=== PATIENT | female | born 1945 | race Two or more races ===

== ENCOUNTER 2023-06-24 20:17 | Inpatient (IN) | payer OTHER ==
[~2023-06-24] VITALS: Ht 157.5 cm; Wt 61.7 kg
[2023-06-24] MEDS ORDERED: PANTOPRAZOLE 40 MG VIAL ONE (20:47)
[2023-06-24] MEDS ORDERED: ONDANSETRON HCL/PF 4 MG/2 ML VIAL ONE (20:47)
[2023-06-24] MEDS: LACTULOSE 10 G/15 ML UDC (PYXIS) PO ONE (21:00)
[2023-06-24] MEDS ORDERED: IV NS 0.9% 1,000 ML BAG IV ONE (21:00)
[2023-06-24] MEDS ORDERED: ONDANSETRON HCL/PF 4 MG/2 ML VIAL IVP ONE (21:00)
[2023-06-24] MEDS ORDERED: PANTOPRAZOLE 40 MG VIAL IV ONE (21:00)
[2023-06-24] MEDS ORDERED: MORPHINE SULFATE INJ 2 MG/ML DISP.SYRIN IV ONE ×2 (21:00→22:00)
[2023-06-24] MEDS ORDERED: LACTULOSE 10 G/15 ML UDC (PYXIS) ONE (21:03)
[2023-06-24] MEDS ORDERED: MORPHINE SULFATE INJ 2 MG/ML DISP.SYRIN ONE ×2 (21:04→21:59)
[2023-06-24 21:11] LABS: BASOPHILS # (AUTO) 0.1 K/uL (0.0-0.2); BASOPHILS % (AUTO) 0.8 % (0.0-2.0); EOSINOPHILS # (AUTO) 0.1 K/uL (0.0-0.7); EOSINOPHILS % (AUTO) 1.1 % (0.0-6.0); HEMATOCRIT 39 % (33-45); HEMOGLOBIN 13.1 g/dL (11.5-14.8); LYMPHOCYTES # (AUTO) 2.6 K/uL (0.8-4.8); LYMPHOCYTES % (AUTO) 21.2 % (20.0-44.0); MEAN CORPUSCULAR HEMOGLOBIN 31 PG (26.0-33.0); MEAN CORPUSCULAR HGB CONC 34 g/dl (31.0-36.0); MEAN CORPUSCULAR VOLUME 91 fL (82-100); MONOCYTES # (AUTO) 0.9 K/uL (0.1-1.30); NEUTROPHILS # (AUTO) 8.6 K/uL (1.8-8.9); NEUTROPHILS % (AUTO) 69.9 % (43.0-81.0); PLATELET COUNT (AUTO) 403 K/uL (150-450); RED BLOOD CELL COUNT(AUTO) 4.26 MIL/uL (4.0-5.2); RED CELL DISTRIBUTION WIDTH 13.4 % (11.5-15.0); WHITE BLOOD COUNT (AUTO) 12.3 K/uL (4.3-11.0)
[2023-06-24 21:22] LABS: CALCIUM, SERUM 10.3 mg/dL (8.5-10.1); CREATININE 0.9 mg/dL (0.6-1.3); POTASSIUM 3.9 mmol/L (3.5-5.1)
[2023-06-24 21:22] LABS: APPEARANCE,URINE CLEAR (CLEAR); BILIRUBIN,URINE NEGATIVE (NEGATIVE); BLOOD, URINE NEGATIVE Ery/uL (NEGATIVE); COLOR,URINE YELLOW (YELLOW); KETONES,URINE NEGATIVE (NEGATIVE); LEUKOCYTE ESTERASE ,URINE NEGATIVE (NEGATIVE); NITRITE, URINE NEGATIVE (NEGATIVE); PH,URINE 6.5 (5.0-8.0); PROTEIN,URINE NEGATIVE (NEGATIVE); UGLUCOSE NEGATIVE (NEGATIVE); UROBILINOGEN,URINE 0.2 EU/dL (0.2)
[2023-06-24 21:28] LABS: ALBUMIN 3.2 g/dL (3.4-5.0); BILIRUBIN,DIRECT 0.1 mg/dL (0.0-0.2); BILIRUBIN,TOTAL 0.3 mg/dL (0.2-1.0); TOTAL PROTEIN, SERUM 7.6 g/dL (6.4-8.2)
[2023-06-24] MEDS ORDERED: LOVA40TA2 PO (23:12)
[2023-06-24] MEDS ORDERED: BUPR150T10 PO (23:12)
[2023-06-24] MEDS ORDERED: CARV6.25 PO (23:12)
[2023-06-24] MEDS ORDERED: CLOP75TA15 PO (23:12)
[2023-06-24] MEDS ORDERED: AMLO1CAP2 PO (23:12)
[2023-06-25] MEDS ORDERED: MINERAL OIL 133 ML (PYXIS) 1 EA ENEMA RC ONE (00:07)
[2023-06-25] MEDS ORDERED: MORPHINE SULFATE INJ 2 MG/ML DISP.SYRIN ONE (00:11)
[2023-06-25] MEDS: MINERAL OIL 133 ML (PYXIS) 1 EA ENEMA RC ONE ×2 (00:27→00:51)
[2023-06-25] MEDS ORDERED: MORPHINE SULFATE INJ 2 MG/ML DISP.SYRIN IV ONE (00:30)
[2023-06-25] MEDS ORDERED: ONDANSETRON HCL/PF 4 MG/2 ML VIAL ONE (00:40)
[2023-06-25] MEDS ORDERED: ONDANSETRON HCL/PF 4 MG/2 ML VIAL IVP ONE (01:00)
[2023-06-25] MEDS ORDERED: ACETAMINOPHEN 650 MG/20.3 ML UDC PO PRN (04:30)
[2023-06-25] MEDS ORDERED: IV D5/0.45 NACL 1,000 ML IV PRN (04:30)
[2023-06-25] MEDS: MORPHINE SULFATE INJ 2 MG/ML DISP.SYRIN IV PRN ×3 (04:47→11:26)
[2023-06-25] MEDS: ONDANSETRON HCL/PF 4 MG/2 ML VIAL IV PRN ×3 (05:20→17:26)
[2023-06-25 06:16] LABS: CALCIUM, SERUM 9.4 mg/dL (8.5-10.1); CARBON DIOXIDE 28 mmol/L (21-32); CHLORIDE 95 mmol/L (98-107); CREATININE 0.8 mg/dL (0.6-1.3); GLUCOSE 144 mg/dL (74-106); POTASSIUM 3.5 mmol/L (3.5-5.1); SODIUM SERUM 133 mmol/L (136-145); UREA NITROGEN, BLOOD 15 mg/dL (7-18)
[2023-06-25 06:17] LABS: BASOPHILS % (AUTO) 0.1 % (0.0-2.0); EOSINOPHILS % (AUTO) 0.1 % (0.0-6.0); HEMATOCRIT 41 % (33-45); HEMOGLOBIN 13.8 g/dL (11.5-14.8); LYMPHOCYTES # (AUTO) 1.7 K/uL (0.8-4.8); LYMPHOCYTES % (AUTO) 9.4 % (20.0-44.0); MEAN CORPUSCULAR HEMOGLOBIN 31 PG (26.0-33.0); MEAN CORPUSCULAR HGB CONC 33 g/dl (31.0-36.0); MEAN CORPUSCULAR VOLUME 92 fL (82-100); MONOCYTES # (AUTO) 1.2 K/uL (0.1-1.30); MONOCYTES % (AUTO) 6.9 % (2.0-12.0); NEUTROPHILS # (AUTO) 14.8 K/uL (1.8-8.9); NEUTROPHILS % (AUTO) 83.5 % (43.0-81.0); PLATELET COUNT (AUTO) 394 K/uL (150-450); RED BLOOD CELL COUNT(AUTO) 4.48 MIL/uL (4.0-5.2); RED CELL DISTRIBUTION WIDTH 13.2 % (11.5-15.0); WHITE BLOOD COUNT (AUTO) 17.7 K/uL (4.3-11.0)
[2023-06-25 07:30] VITALS: BP 169/73; TEMP 98.4; O2SAT 90
[2023-06-25] MEDS ORDERED: LINA290C PO (08:23)
[2023-06-25] MEDS ORDERED: ALBU8.5H8 IH (08:23)
[2023-06-25] MEDS ORDERED: DEXL60CA3 PO (08:23)
[2023-06-25] MEDS ORDERED: FLAX10003 PO (08:23)
[2023-06-25] MEDS ORDERED: LORA-259 PO (08:23)
[2023-06-25] MEDS ORDERED: ZINC50TA39 PO (08:23)
[2023-06-25] MEDS ORDERED: ALEN70TA80 PO (08:23)
[2023-06-25] MEDS ORDERED: CYAN500T64 PO (08:23)
[2023-06-25] MEDS ORDERED: ASPI-1169 PO (08:23)
[2023-06-25] MEDS ORDERED: CALC-34 PO (08:23)
[2023-06-25] MEDS ORDERED: MULT-754 PO (08:23)
[2023-06-25] MEDS: ENOXAPARIN SODIUM 40 MG/0.4 ML DISP.SYRIN SQ SCH (08:28)
[2023-06-25] MEDS ORDERED: CLOPIDOGREL BISULFATE 75 MG TABLET PO SCH ×3 (09:00→22:00)
[2023-06-25] MEDS: buPROPion SR 150 MG TABLET.ER PO SCH ×2 (09:00→17:02)
[2023-06-25] MEDS ORDERED: Medication Not On Formulary EA (Flaxseed Oil 1,000 MG) PO SCH (09:00)
[2023-06-25] MEDS ORDERED: NA PHOS,M-B/NA PHOS,DI-BA 1 EA ENEMA RC ONE (09:00)
[2023-06-25] MEDS ORDERED: Medication Not On Formulary EA (Linaclotide (Linzess) 290 MCG) PO SCH (09:00)
[2023-06-25] MEDS ORDERED: ASPIRIN 81 MG TAB.CHEW PO SCH ×3 (09:00→22:00)
[2023-06-25] MEDS: CYANOCOBALAMIN 500 MCG TABLET PO SCH (09:00)
[2023-06-25] MEDS: AMLODIPINE BESYLATE 5 MG TABLET PO SCH ×3 (09:53→17:03)
[2023-06-25] MEDS: CARVEDILOL 6.25 MG TABLET PO SCH ×3 (09:54→17:03)
[2023-06-25] MEDS ORDERED: ALBUTEROL FS 2.5 MG/0.5 ML VIAL.NEB NEB PRN (10:00)
[2023-06-25] MEDS: Potassium Chloride 10 MEQ in IV D5/ 0.9% NACL 1,000 ML IV SCH ×2 (10:03→20:43)
[2023-06-25] MEDS: MEROPENEM 1 G in IV NS 0.9% 100 ML IV SCH ×2 (11:25→17:05)
[2023-06-25 16:00] VITALS: BP 137/58; TEMP 98.4; O2SAT 86
[2023-06-25] MEDS: MORPHINE SULFATE INJ 4 MG/ML DISP.SYRIN IV PRN ×2 (17:15→22:42)
[2023-06-25 20:00] VITALS: BP 139/61; TEMP 98.1; O2SAT 94
[2023-06-25 20:56] VITALS: BP 122/55; TEMP 98.1; O2SAT 100
[2023-06-25] MEDS: LORAZEPAM 1 MG TABLET PO SCH (21:09)
[2023-06-26] MEDS: MEROPENEM 1 G in IV NS 0.9% 100 ML IV SCH ×3 (02:04→17:18)
[2023-06-26 05:50] LABS: BASOPHILS % (AUTO) 0.3 % (0.0-2.0); EOSINOPHILS # (AUTO) 0.1 K/uL (0.0-0.7); EOSINOPHILS % (AUTO) 0.3 % (0.0-6.0); HEMATOCRIT 36 % (33-45); HEMOGLOBIN 11.9 g/dL (11.5-14.8); LYMPHOCYTES # (AUTO) 1.9 K/uL (0.8-4.8); LYMPHOCYTES % (AUTO) 11.7 % (20.0-44.0); MEAN CORPUSCULAR HEMOGLOBIN 31 PG (26.0-33.0); MEAN CORPUSCULAR HGB CONC 33 g/dl (31.0-36.0); MEAN CORPUSCULAR VOLUME 92 fL (82-100); MONOCYTES # (AUTO) 1.8 K/uL (0.1-1.30); MONOCYTES % (AUTO) 11.2 % (2.0-12.0); NEUTROPHILS # (AUTO) 12.4 K/uL (1.8-8.9); NEUTROPHILS % (AUTO) 76.5 % (43.0-81.0); PLATELET COUNT (AUTO) 356 K/uL (150-450); RED BLOOD CELL COUNT(AUTO) 3.88 MIL/uL (4.0-5.2); RED CELL DISTRIBUTION WIDTH 13.5 % (11.5-15.0); WHITE BLOOD COUNT (AUTO) 16.2 K/uL (4.3-11.0)
[2023-06-26] MEDS: MORPHINE SULFATE INJ 4 MG/ML DISP.SYRIN IV PRN ×3 (05:55→23:13)
[2023-06-26] MEDS: Potassium Chloride 10 MEQ in IV D5/ 0.9% NACL 1,000 ML IV SCH ×2 (05:57→17:02)
[2023-06-26 06:22] LABS: CARBON DIOXIDE 30 mmol/L (21-32); CHLORIDE 100 mmol/L (98-107); CREATININE 0.7 mg/dL (0.6-1.3); GLUCOSE 155 mg/dL (74-106); MAGNESIUM 3.1 mg/dL (1.8-2.4); POTASSIUM 3.6 mmol/L (3.5-5.1); SODIUM SERUM 135 mmol/L (136-145); UREA NITROGEN, BLOOD 14 mg/dL (7-18)
[2023-06-26 08:05] VITALS: BP 128/58; TEMP 98.4; O2SAT 93
[2023-06-26] MEDS ORDERED: CLOPIDOGREL BISULFATE 75 MG TABLET PO SCH ×2 (09:00→22:00)
[2023-06-26] MEDS ORDERED: ASPIRIN 81 MG TAB.CHEW PO SCH ×2 (09:00→22:00)
[2023-06-26] MEDS ORDERED: NA PHOS,M-B/NA PHOS,DI-BA 1 EA ENEMA RC ONE (09:00)
[2023-06-26] MEDS ORDERED: ATORVASTATIN 40 MG TABLET PO SCH ×2 (09:00→20:00)
[2023-06-26] MEDS: ENOXAPARIN SODIUM 40 MG/0.4 ML DISP.SYRIN SQ SCH (09:00)
[2023-06-26] MEDS: LACTULOSE 10 G/15 ML UDC (PYXIS) PO SCH ×2 (09:03→17:00)
[2023-06-26] MEDS: ZINC SULFATE 220 MG CAPSULE PO SCH (09:03)
[2023-06-26] MEDS: PANTOPRAZOLE 40 MG/PACK PACK PO SCH (09:03)
[2023-06-26] MEDS: buPROPion SR 150 MG TABLET.ER PO SCH ×2 (09:03→17:17)
[2023-06-26] MEDS: MULTIVITAMINS,THERAGRAN 1 UDTAB TABLET PO SCH (09:03)
[2023-06-26] MEDS: AMLODIPINE BESYLATE 5 MG TABLET PO SCH ×2 (09:04→17:00)
[2023-06-26] MEDS: CYANOCOBALAMIN 500 MCG TABLET PO SCH (09:04)
[2023-06-26] MEDS: CARVEDILOL 3.125 MG TABLET PO SCH ×2 (09:05→17:00)
[2023-06-26 16:10] VITALS: BP 139/59; TEMP 99; O2SAT 93
[2023-06-26 20:00] VITALS: BP 152/66; TEMP 98.2; O2SAT 93
[2023-06-26] MEDS ORDERED: POLYETHYLENE GLYCOL 3350 17 GM POWD.PACK PO SCH (22:00)
[2023-06-26] MEDS: LORAZEPAM 1 MG TABLET PO SCH (22:04)
[2023-06-27] MEDS: MEROPENEM 1 G in IV NS 0.9% 100 ML IV SCH ×2 (02:05→10:38)
[2023-06-27] MEDS: Potassium Chloride 10 MEQ in IV D5/ 0.9% NACL 1,000 ML IV SCH (02:25)
[2023-06-27 05:48] LABS: BASOPHILS # (AUTO) 0.1 K/uL (0.0-0.2); BASOPHILS % (AUTO) 0.5 % (0.0-2.0); EOSINOPHILS # (AUTO) 0.2 K/uL (0.0-0.7); EOSINOPHILS % (AUTO) 1.2 % (0.0-6.0); HEMATOCRIT 38 % (33-45); HEMOGLOBIN 12.2 g/dL (11.5-14.8); LYMPHOCYTES # (AUTO) 2.6 K/uL (0.8-4.8); LYMPHOCYTES % (AUTO) 20.7 % (20.0-44.0); MEAN CORPUSCULAR HEMOGLOBIN 31 PG (26.0-33.0); MEAN CORPUSCULAR HGB CONC 33 g/dl (31.0-36.0); MEAN CORPUSCULAR VOLUME 94 fL (82-100); MONOCYTES # (AUTO) 1.2 K/uL (0.1-1.30); MONOCYTES % (AUTO) 9.1 % (2.0-12.0); NEUTROPHILS # (AUTO) 8.7 K/uL (1.8-8.9); NEUTROPHILS % (AUTO) 68.5 % (43.0-81.0); PLATELET COUNT (AUTO) 303 K/uL (150-450); RED CELL DISTRIBUTION WIDTH 13.4 % (11.5-15.0); WHITE BLOOD COUNT (AUTO) 12.7 K/uL (4.3-11.0)
[2023-06-27 06:20] LABS: CALCIUM, SERUM 8.1 mg/dL (8.5-10.1); CARBON DIOXIDE 29 mmol/L (21-32); CHLORIDE 104 mmol/L (98-107); CREATININE 0.7 mg/dL (0.6-1.3); GLUCOSE 128 mg/dL (74-106); MAGNESIUM 2.7 mg/dL (1.8-2.4); POTASSIUM 3.7 mmol/L (3.5-5.1); SODIUM SERUM 135 mmol/L (136-145); UREA NITROGEN, BLOOD 11 mg/dL (7-18)
[2023-06-27 08:42] VITALS: BP 161/64; TEMP 98.1; O2SAT 91
[2023-06-27] MEDS: CYANOCOBALAMIN 500 MCG TABLET PO SCH (08:44)
[2023-06-27] MEDS: ZINC SULFATE 220 MG CAPSULE PO SCH (08:44)
[2023-06-27] MEDS: PANTOPRAZOLE 40 MG/PACK PACK PO SCH (08:44)
[2023-06-27] MEDS: buPROPion SR 150 MG TABLET.ER PO SCH (08:44)
[2023-06-27] MEDS: AMLODIPINE BESYLATE 5 MG TABLET PO SCH (08:44)
[2023-06-27] MEDS: MULTIVITAMINS,THERAGRAN 1 UDTAB TABLET PO SCH (08:44)
[2023-06-27 08:45] VITALS: BP 161/64
[2023-06-27] MEDS: CARVEDILOL 3.125 MG TABLET PO SCH (08:45)
[2023-06-27] MEDS: ENOXAPARIN SODIUM 40 MG/0.4 ML DISP.SYRIN SQ SCH ×2 (08:46→08:59)
== END 2023-06-27 13:45 | disposition home or self-care (01) | DRG 389 ==
LOC: ER 20:20 → MED 06-25 02:12
PROVIDERS: ADMIT Internal Medicine; ATTEND Internal Medicine
DX: K56.41 Fecal impaction (principal); K57.32 Diverticulitis of large intestine without perforation or abscess without bleeding; I10 Essential (primary) hypertension; Z85.118 Personal history of other malignant neoplasm of bronchus and lung; E78.5 Hyperlipidemia, unspecified; K44.9 Diaphragmatic hernia without obstruction or gangrene; R91.8 Other nonspecific abnormal finding of lung field; J44.9 Chronic obstructive pulmonary disease, unspecified; I25.10 Atherosclerotic heart disease of native coronary artery without angina pectoris; Z95.1 Presence of aortocoronary bypass graft; K21.9 Gastro-esophageal reflux disease without esophagitis; Z87.891 Personal history of nicotine dependence; K80.20 Calculus of gallbladder without cholecystitis without obstruction; Z90.710 Acquired absence of both cervix and uterus; Z88.0 Allergy status to penicillin; Z88.2 Allergy status to sulfonamides; Z88.3 Allergy status to other anti-infective agents
CPT/HCPCS: 36415; 71045-TC; 80048-TC; 80076-TC; 83690-TC; 83735-TC; 85025-TC; A4223; C9113; G0378; J1650; J2185; J2270; J2405; J3480; J3490; J7030; J7042; J7050

== ENCOUNTER 2023-08-11 19:32 | Emergency (ER) | payer OTHER, MEDICAID ==
[~2023-08-11] VITALS: Ht 157.5 cm; Wt 59.0 kg
[~2023-08-11 19:32] MED LIST: ALBU8.5H8 IH; ALEN70TA80 PO; AMLO1CAP2 PO; ASPI-1169 PO; BUPR150T10 PO; CALC-34 PO; CARV6.25 PO; CLOP75TA15 PO; CYAN500T64 PO; DEXL60CA3 PO; FLAX10003 PO; LINA290C PO; LORA-259 PO; LOVA40TA2 PO; MULT-754 PO; ZINC50TA39 PO
[2023-08-11 20:32] LABS: BASOPHILS # (AUTO) 0.1 K/uL (0.0-0.2); BASOPHILS % (AUTO) 1.1 % (0.0-2.0); EOSINOPHILS # (AUTO) 0.4 K/uL (0.0-0.7); EOSINOPHILS % (AUTO) 3.3 % (0.0-6.0); HEMATOCRIT 38 % (33-45); HEMOGLOBIN 12.3 g/dL (11.5-14.8); LYMPHOCYTES # (AUTO) 4.3 K/uL (0.8-4.8); LYMPHOCYTES % (AUTO) 36.5 % (20.0-44.0); MEAN CORPUSCULAR HEMOGLOBIN 29 PG (26.0-33.0); MEAN CORPUSCULAR HGB CONC 33 g/dl (31.0-36.0); MEAN CORPUSCULAR VOLUME 89 fL (82-100); MONOCYTES # (AUTO) 1.1 K/uL (0.1-1.30); MONOCYTES % (AUTO) 9.3 % (2.0-12.0); NEUTROPHILS # (AUTO) 5.8 K/uL (1.8-8.9); NEUTROPHILS % (AUTO) 49.8 % (43.0-81.0); PLATELET COUNT (AUTO) 427 K/uL (150-450); RED BLOOD CELL COUNT(AUTO) 4.21 MIL/uL (4.0-5.2); RED CELL DISTRIBUTION WIDTH 14.1 % (11.5-15.0); WHITE BLOOD COUNT (AUTO) 11.7 K/uL (4.3-11.0)
[2023-08-11 20:34] LABS: APPEARANCE,URINE CLEAR (CLEAR); BILIRUBIN,URINE NEGATIVE (NEGATIVE); BLOOD, URINE NEGATIVE Ery/uL (NEGATIVE); COLOR,URINE YELLOW (YELLOW); KETONES,URINE NEGATIVE (NEGATIVE); LEUKOCYTE ESTERASE ,URINE NEGATIVE (NEGATIVE); NITRITE, URINE NEGATIVE (NEGATIVE); PROTEIN,URINE NEGATIVE (NEGATIVE); UGLUCOSE NEGATIVE (NEGATIVE); UROBILINOGEN,URINE 0.2 EU/dL (0.2)
[2023-08-11 20:39] LABS: CARBON DIOXIDE 26 mmol/L (21-32); CHLORIDE 98 mmol/L (98-107); GLUCOSE 95 mg/dL (74-106); SODIUM SERUM 132 mmol/L (136-145); UREA NITROGEN, BLOOD 19 mg/dL (7-18)
[2023-08-11 20:46] LABS: ALANINE AMINOTRANSFERASE 19 U/L (12-78); ALBUMIN 3.1 g/dL (3.4-5.0); ALKALINE PHOSPHATASE 96 U/L (46-116); ASPARTATE AMINOTRANSFERASE 15 U/L (15-37); BILIRUBIN,DIRECT 0.1 mg/dL (0.0-0.2); BILIRUBIN,TOTAL 0.3 mg/dL (0.2-1.0); LIPASE 54 U/L (16-77); TOTAL PROTEIN, SERUM 7.8 g/dL (6.4-8.2)
[2023-08-11] MEDS ORDERED: ONDANSETRON 4 MG TAB.RAPDIS SL ONE (22:00)
[2023-08-11] MEDS ORDERED: HYDROCODONE/APAP 5/325MG TABLET PO ONE (22:00)
[2023-08-11] MEDS ORDERED: HYDROCODONE/APAP 5/325MG TABLET ONE (22:06)
[2023-08-11] MEDS ORDERED: ONDANSETRON 4 MG TAB.RAPDIS ONE (22:06)
[2023-08-12 00:44] VITALS: BP 162/65; TEMP 98.5; O2SAT 99
== END 2023-08-12 00:46 | disposition home or self-care (01) ==
LOC: ER 19:33
DX: R10.9 Unspecified abdominal pain (principal); I10 Essential (primary) hypertension; E78.5 Hyperlipidemia, unspecified; Z88.2 Allergy status to sulfonamides; Z88.0 Allergy status to penicillin; Z60.2 Problems related to living alone; Z79.899 Other long term (current) drug therapy
CPT/HCPCS: 99284; 74176; 85025; 80048; 87086; 83690; 80076; 81003; 36415; Q0162

== ENCOUNTER 2024-06-28 15:14 | Emergency (ER) | payer OTHER, MEDICAID ==
[~2024-06-28] VITALS: Ht 162.6 cm; Wt 64.9 kg
[2024-06-28 15:54] VITALS: TEMP 98.3
[2024-06-28 17:18] LABS: BASOPHILS # (AUTO) 0.1 K/uL (0.0-0.2); BASOPHILS % (AUTO) 0.7 % (0.0-2.0); EOSINOPHILS # (AUTO) 0.1 K/uL (0.0-0.7); EOSINOPHILS % (AUTO) 0.7 % (0.0-6.0); HEMATOCRIT 47 % (33-45); LYMPHOCYTES # (AUTO) 2.4 K/uL (0.8-4.8); LYMPHOCYTES % (AUTO) 23.1 % (20.0-44.0); MEAN CORPUSCULAR HEMOGLOBIN 33 PG (26.0-33.0); MEAN CORPUSCULAR HGB CONC 34 g/dl (31.0-36.0); MEAN CORPUSCULAR VOLUME 96 fL (82-100); MONOCYTES # (AUTO) 0.8 K/uL (0.1-1.30); MONOCYTES % (AUTO) 7.4 % (2.0-12.0); NEUTROPHILS # (AUTO) 7.1 K/uL (1.8-8.9); NEUTROPHILS % (AUTO) 68.1 % (43.0-81.0); PLATELET COUNT (AUTO) 356 K/uL (150-450); RED BLOOD CELL COUNT(AUTO) 4.91 MIL/uL (4.0-5.2); WHITE BLOOD COUNT (AUTO) 10.5 K/uL (4.3-11.0)
[2024-06-28 17:23] LABS: CALCIUM, SERUM 9.8 mg/dL (8.5-10.1); CARBON DIOXIDE 27 mmol/L (21-32); CHLORIDE 101 mmol/L (98-107); CREATININE 0.9 mg/dL (0.6-1.3); GLUCOSE 101 mg/dL (74-106); SODIUM SERUM 137 mmol/L (136-145); UREA NITROGEN, BLOOD 12 mg/dL (7-18)
[2024-06-28 17:39] LABS: INR 1.03 (0.91-1.10); PROTHROMBIN TIME 10.9 SECS (9.2-11.1)
[2024-06-28] MEDS ORDERED: oxyCODONE IR immediate release 5 MG TABLET ONE (17:55)
[2024-06-28] MEDS ORDERED: ONDANSETRON 4 MG TAB.RAPDIS ONE (17:55)
[2024-06-28] MEDS: ONDANSETRON 4 MG TAB.RAPDIS PO ONE (17:58)
[2024-06-28] MEDS: oxyCODONE IR immediate release 5 MG TABLET PO ONE (17:58)
[2024-06-28] MEDS ORDERED: LIPA1CAP15 PO (18:09)
[2024-06-28] MEDS ORDERED: CALC-1239 PO (18:09)
[2024-06-28] MEDS ORDERED: ROSU20TA32 PO (18:09)
[2024-06-28] MEDS ORDERED: hydrALAZINE HCL IV 20 MG VIAL IV ONE (23:00)
[2024-06-28] MEDS ORDERED: hydrALAZINE HCL IV 20 MG VIAL ONE (23:07)
[2024-06-28 23:10] VITALS: BP 148/77; O2SAT 98
== END 2024-06-28 23:34 ==
LOC: ER 16:56
DX: S22.008A Other fracture of unspecified thoracic vertebra, initial encounter for closed fracture (principal); M54.6 Pain in thoracic spine; I10 Essential (primary) hypertension; E78.5 Hyperlipidemia, unspecified; J44.9 Chronic obstructive pulmonary disease, unspecified; Z60.2 Problems related to living alone; Z79.02 Long term (current) use of antithrombotics/antiplatelets; Z79.82 Long term (current) use of aspirin; Z79.899 Other long term (current) drug therapy; Z85.118 Personal history of other malignant neoplasm of bronchus and lung; Z88.0 Allergy status to penicillin; Z88.1 Allergy status to other antibiotic agents; Z88.2 Allergy status to sulfonamides; Z20.822 Contact with and (suspected) exposure to COVID-19; W13.1XXA Fall from, out of or through bridge, initial encounter; Y93.89 Activity, other specified; Y92.89 Other specified places as the place of occurrence of the external cause; Y99.8 Other external cause status
CPT/HCPCS: 99291; 87426; 93005; 71045; 85025; 80048; 36415; 85730; Q0162; J0360